=== PATIENT | male | born 1990 | race Caucasian/White ===

== ENCOUNTER 2023-09-13 13:39 | Emergency (ER) | payer OTHER ==
[2023-09-13 13:52] VITALS: BP 131/78; O2SAT 97
--- NOTE | 2023-09-13 13:56 | ED Physician Documentation ---
History of Present Illness - Stated complaint Stated Complaint: FEVER,BODY ACHE,SORE THROAT - Chief complaint Chief Complaint: Heent - History obtained from History obtained from: Patient (Sore throat since yesterday with fevers and bodyaches. Daughter was diagnosed with strep 2 days ago. No significant cough.) PD PAST MEDICAL HISTORY - Past Medical History GI: GERD - Past Surgical History Past Surgical History: No - Present Medications Home Medications: Ambulatory Orders Medication Instructions Recorded Confirmed Omeprazole Magnesium 20 mg PO DAILY 10/02/21 10/02/21 Ondansetron Odt [Zofran] 4 mg TL Q6H PRN #10 tablet 10/02/21 Penicillin V Potassium 500 mg PO Q6HR #40 tablet 09/13/23 - Allergies Allergies/Adverse Reactions: Allergies Allergy/AdvReac Type Severity Reaction Status Date / Time No Known Drug Allergies Allergy Verified 09/13/23 14:07 - Social History Does the pt smoke?: No Smoking Status: Never smoker Does the pt drink ETOH?: No Does the pt have substance abuse?: No - Immunizations Immunizations are current?: Yes PD ED PE NORMAL - Vitals Vital signs reviewed: Yes - General General: Alert and oriented X 3, No acute distress - HEENT HEENT: Other (Exudative tonsillitis with palatal petechia) - Neuro Neuro: Alert and oriented X 3 Results - Vitals Vitals: Vital Signs - 24 hr 09/13/23 13:43 Temperature 36.6 C Heart Rate 95 Respiratory 16 Rate Blood Pressure 131/78 H O2 Saturation 97 Oxygen O2 Source Room air - Labs Labs: Laboratory Tests 09/13/23 13:48 Group A Strep Rapid POSITIVE H Departure - Departure Disposition: 01 Home, Self Care Clinical Impression: Strep pharyngitis Condition: Good Record reviewed to determine appropriate education?: Yes Instructions: ED Strep Pharyngitis Conf Prescriptions: Penicillin V Potassium 500 mg PO Q6HR #40 tablet Comments: I sent your prescription electronically to the [facility] in [place]. As discussed your physical examination is very suggestive of strep throat which you likely got from your daughter. Return if worse. Forms: PCP List Discharge Date/Time: 09/13/23 14:22
[2023-09-13 14:24] LABS: RAPID STREP SCREEN POSITIVE (Negative)
== END 2023-09-13 14:22 | disposition home or self-care (01) ==
LOC: ED 13:39
DX: J02.0 Streptococcal pharyngitis (principal)
CPT/HCPCS: 87430; 99283